=== PATIENT | male | born 1970 | race Caucasian/White ===

== ENCOUNTER 2016-11-25 12:26 | Emergency (ER) | payer OTHER ==
--- NOTE | 2016-11-25 15:07 | UC ---
Eye Complaint HPI - HPI Summary HPI Summary: 46 male presents with complaints of eye redness, discharge, itching and pain. States began Tuesday and has worsened since. Tried eye drops unknown name without relief. States he is legally blind without his contacts, however is unable to use contact due to discomfort. Attempted to put in a Tuesday and was unable. Denies any other known trauma, injury or FB. Woke up with crusting tuesday. Began in right eye and moved to left. which got much worse after using hot compresses. No other complaints, unable to assess visual changes due to not having vision without contact. PMHx includes cerebellar stroke in past x2. - History of Current Complaint Chief Complaint: UCEye Stated Complaint: LEFT EYE COMPLAINT Time Seen by Provider: 11/25/16 14:44 Hx Obtained From: Patient Onset/Duration: Sudden Onset, Lasting Days, Still Present, Worse Since Timing: Constant Severity Initially: Mild Severity Currently: Moderate Pain Intensity: 4 Pain Scale Used: 0-10 Numeric - discomfort Location of Injury: Conjunctiva, Eye Lid (lower), Sclera Aggravating Factor(s): Nothing Alleviating Factor(s): Nothing Associated Signs And Symptoms: Positive: Drainage (Purulent), Swelling - Allergies/Home Medications Allergies/Adverse Reactions: Allergies Allergy/AdvReac Type Severity Reaction Status Date / Time Erythromycin Allergy Swelling Verified 11/25/16 14:14 Of Face,Lips,& Throat Home Medications: Home Medications Aspirin Low Dose CHEW TAB* [Aspirin Low Dose TAB*] 81 mg PO DAILY 11/25/16 [ History Confirmed 11/25/16] Ezetimibe TAB* [Zetia TAB*] 10 mg PO DAILY 11/25/16 [History Confirmed 11/25/16] Simvastatin [Zocor 5 MG-] 5 mg PO DAILY 11/25/16 [History Confirmed 11/25/16] PMH/Surg Hx/FS Hx/Imm Hx - Additional Past Medical History Additional PMH: Denies DM HTN asthma. Cerebellar stroke x 2 2013 - Surgical History Surgical History: Yes Surgery Procedure, Year, and Place: implanted heart monitor (not and ICD or pacer) - Family History Known Family History: Positive: None - Social History Alcohol Use: Occasionally Substance Use Type: None Smoking Status (MU): Heavy Every Day Tobacco Smoker Amount Used/How Often: 1/2 ppd Review of Systems Constitutional: Negative Skin: Negative Eyes: Drainage, Eye Redness, Other - edema ENT: Negative Respiratory: Negative Cardiovascular: Negative Musculoskeletal: Negative Neurological: Negative All Other Systems Reviewed And Are Negative: Yes Physical Exam Triage Information Reviewed: Yes Appearance: Well-Appearing, No Pain Distress, Well-Nourished Vital Signs Reviewed: Yes Eyes: Positive: Conjunctiva Inflamed, Discharge - yellow/clear, erythema, and edema of lower lid and conjunctiva, Other: - unabe to assess visual acuity due to being legally blind and not wearing contact in left eye. 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 Due to PE findings, contact user and history of present illness will treat for conjunctivitis. cipro. due to swelling surrounding eye and lower lid will give oral antibiotics to use if symptoms do not improve from use of drops within 4 days, or if worsens. Aware of worsening signs and symptoms to watch out for. Follow up pcp/ optho. No concern for other emergent etiology at this time. - Differential Dx/Diagnosis Differential Diagnosis/HQI/PQRI: Conjunctivitis, Corneal Abrasion, Foreign Body , Periorbital Cellulitis, Uveitis Provider Diagnoses: conjunctivitis left eye Discharge - Discharge Plan Condition: Stable Disposition: HOME Prescriptions: Cephalexin CAP* [Keflex CAP*] 500 mg PO BID #14 cap Ciprofloxacin 0.3% OPTH.WILFREDO* [Cipro 0.3% Opth*] 1 drop LEFT EYE Q2H #1 btl Patient Education Materials: Conjunctivitis (ED) Forms: *Work Release Referrals: No Primary Care Phys,NOPCP [Medical Doctor] - Additional Instructions: Use drops as prescribed. Do not take oral antibiotic unless symptoms do not improve after 4 days of treatment.
[2016-11-25 16:19] VITALS: BP 140/77
== END 2016-11-25 15:26 | disposition home or self-care (01) ==
LOC: UCCORT 12:26
DX: H10.32 Unspecified acute conjunctivitis, left eye (principal); Z95.818 Presence of other cardiac implants and grafts; Z88.1 Allergy status to other antibiotic agents; F17.210 Nicotine dependence, cigarettes, uncomplicated
CPT/HCPCS: 99202; G0463